=== PATIENT | male | born 1975 | race Caucasian/White ===

== ENCOUNTER 2023-06-12 07:59 | Inpatient (IN) | payer MEDICAID ==
[~2023-06-12] VITALS: Ht 182.9 cm; Wt 77.1 kg
[2023-06-12 08:02] VITALS: BP 162/64; PULSE 72; RESP 20; TEMP 97.9; O2SAT 100
[2023-06-12 08:51] LABS: BASOPHILS % (AUTO) 0.4 % (0.0-2.0); EOSINOPHILS % (AUTO) 0.4 % (0.0-4.0); HEMATOCRIT 42.5 % (36-52); HEMOGLOBIN 15.1 g/dL (12.0-18.0); LYMPHOCYTES # (AUTO) 1.3 K/uL (2.0-11.5); LYMPHOCYTES % (AUTO) 14.4 % (20.5-51.1); MEAN CORPUSCULAR HEMOGLOBIN 32 pg (27-31); MEAN CORPUSCULAR HGB CONC 35 g/dL (33-37); MEAN CORPUSCULAR VOLUME 91.4 fL (80-94); MONOCYTES # (AUTO) 0.5 K/uL (0.8-1.0); MONOCYTES % (AUTO) 5.6 % (1.7-9.3); NEUTROPHILS # (AUTO) 7.4 K/uL (1.8-7.7); NEUTROPHILS % (AUTO) 79.2 % (42.2-75.2); PLATELET COUNT (AUTO) 229 K/uL (140-450); RED BLOOD CELL COUNT(AUTO) 4.65 MIL/uL (4.20-6.10); WHITE BLOOD COUNT (AUTO) 9.3 K/uL (4.8-10.8)
[2023-06-12] MEDS: KETOROLAC 30 MG/ML VIAL IVP ONE (09:05)
[2023-06-12 09:09] LABS: ANION GAP 13.5 (8-16); CALCIUM 9.5 mg/dL (8.5-10.1); CARBON DIOXIDE 25.8 mmol/L (21-32); CREATININE 0.9 mg/dL (0.6-1.3); POTASSIUM 3.3 mmol/L (3.5-5.1)
[2023-06-12 09:30] LABS: BILIRUBIN,DIRECT 0.3 mg/dL (0.0-0.3); TOTAL BILIRUBIN 2.2 mg/dL (0.0-1.0)
[2023-06-12] MEDS: MORPHINE SULFATE 4 MG/ML SYR IVP ONE (10:02)
[2023-06-12] MEDS ORDERED: KETAMINE 500 MG/5 ML VIAL ONE (10:58)
[2023-06-12] MEDS: KETAMINE 500 MG/5 ML VIAL IVP ONE (11:05)
[2023-06-12] MEDS: fentaNYL citrate 0.05 MG/ML VIAL IVP ONE (11:48)
[2023-06-12] MEDS ORDERED: MAG SULF 2000 MG/WATER PREMIX 50 ML IV PRN (12:30)
[2023-06-12] MEDS ORDERED: POLYETHYLENE GLYCOL 17 GM/PKT PO PRN (12:30)
[2023-06-12] MEDS: NACL 0.9% 1,000 ML IV SCH (12:30)
[2023-06-12] MEDS: MORPHINE SULFATE 2 MG/ML SYR IVP PRN (14:49)
[2023-06-12] MEDS ORDERED: BENZ1GEL49 TP (15:10)
[2023-06-12] MEDS ORDERED: DICL100G32 TP (15:10)
[2023-06-12 15:30] VITALS: RESP 19; RESP 20; O2SAT 100; O2SAT 98
[2023-06-12] MEDS: HYDROcodone/APAP 5/325 MG 1 TAB TAB PO PRN (16:26)
[2023-06-12 17:15] VITALS: BP 149/79; PULSE 58; RESP 19; TEMP 97.1; O2SAT 98
[2023-06-12] MEDS: KCL 20 MEQ IN 100 mL PREMIX 200 ML IV PRN (17:40)
[2023-06-12 20:00] VITALS: BP 146/102; PULSE 50; RESP 20; TEMP 97.9; O2SAT 98
[2023-06-12] MEDS: MELATONIN 3 MG TAB PO PRN (21:27)
[2023-06-12] MEDS: ONDANSETRON 4 MG/2 ML VIAL IVP PRN (23:02)
[2023-06-13 03:18] LABS: BILIRUBIN,URINE 1+ (NEGATIVE); BLOOD, URINE 1+ (NEGATIVE); LEUKOCYTE ESTERASE ,URINE NEGATIVE (NEGATIVE); NITRITE, URINE NEGATIVE (NEGATIVE); PH,URINE 5.5 (5.0-9.0); PROTEIN,URINE NEGATIVE (NEGATIVE); UGLUCOSE NEGATIVE (NEGATIVE); UROBILINOGEN,URINE 0.2 EU/dL (0.2 - 1)
[2023-06-13 03:21] LABS: APPEARANCE,URINE CLEAR (CLEAR); COLOR,URINE AMBER (YELLOW)
[2023-06-13 03:22] LABS: ICTOTEST POSITIVE (NEGATIVE)
[2023-06-13 03:23] LABS: WBC,URINE 0-5 /HPF (0-5)
[2023-06-13 03:24] LABS: BACTERIA,URINE >30 (MANY) /HPF (None Seen); MUCUS,URINE 1+ /LPF (None Seen); SQUAMOUS EPITHELIAL CELL,UR 0-3 (FEW) /LPF (0-3 (FEW))
[2023-06-13 04:00] VITALS: BP 130/78; PULSE 58; TEMP 97.7; O2SAT 95
[2023-06-13 06:24] LABS: BASOPHILS % (AUTO) 0.4 % (0.0-2.0); EOSINOPHILS % (AUTO) 0.2 % (0.0-4.0); HEMOGLOBIN 13.5 g/dL (12.0-18.0); LYMPHOCYTES # (AUTO) 1.5 K/uL (2.0-11.5); LYMPHOCYTES % (AUTO) 14.9 % (20.5-51.1); MEAN CORPUSCULAR HEMOGLOBIN 32 pg (27-31); MEAN CORPUSCULAR HGB CONC 36 g/dL (33-37); MEAN CORPUSCULAR VOLUME 90.9 fL (80-94); MONOCYTES # (AUTO) 0.9 K/uL (0.8-1.0); NEUTROPHILS # (AUTO) 7.6 K/uL (1.8-7.7); NEUTROPHILS % (AUTO) 75.5 % (42.2-75.2); PLATELET COUNT (AUTO) 192 K/uL (140-450); RED BLOOD CELL COUNT(AUTO) 4.18 MIL/uL (4.20-6.10); RED CELL DISTRIBUTION WIDTH 12.9 % (11.6-13.7); WHITE BLOOD COUNT (AUTO) 10.1 K/uL (4.8-10.8)
[2023-06-13 06:57] LABS: ANION GAP 13.1 (8-16); CALCIUM 8.2 mg/dL (8.5-10.1); CARBON DIOXIDE 22.4 mmol/L (21-32); CREATININE 0.7 mg/dL (0.6-1.3); MAGNESIUM 1.8 mg/dL (1.8-2.4); PHOSPHORUS 4.3 mg/dL (2.5-4.9); POTASSIUM 3.5 mmol/L (3.5-5.1); TOTAL PROTEIN, SERUM 5.8 g/dL (6.4-8.2)
[2023-06-13 08:00] VITALS: BP 126/77; PULSE 62; RESP 20; TEMP 97.8; O2SAT 97
[2023-06-13 16:00] VITALS: BP 106/64; PULSE 54; RESP 20; TEMP 97.4; O2SAT 99
[2023-06-13 20:00] VITALS: BP 129/63; PULSE 60; RESP 18; TEMP 98.5; O2SAT 98
[2023-06-13] MEDS: ACETAMINOPHEN 325 MG TAB PO PRN (20:40)
[2023-06-14 05:32] LABS: BASOPHILS % (AUTO) 0.7 % (0.0-2.0); EOSINOPHILS # (AUTO) 0.1 K/uL (0-0.4); EOSINOPHILS % (AUTO) 1.7 % (0.0-4.0); HEMATOCRIT 33.4 % (36-52); LYMPHOCYTES # (AUTO) 1.9 K/uL (2.0-11.5); LYMPHOCYTES % (AUTO) 33.2 % (20.5-51.1); MEAN CORPUSCULAR HEMOGLOBIN 33 pg (27-31); MEAN CORPUSCULAR HGB CONC 36 g/dL (33-37); MEAN CORPUSCULAR VOLUME 90.7 fL (80-94); MONOCYTES # (AUTO) 0.6 K/uL (0.8-1.0); MONOCYTES % (AUTO) 10.5 % (1.7-9.3); NEUTROPHILS # (AUTO) 3.1 K/uL (1.8-7.7); NEUTROPHILS % (AUTO) 53.9 % (42.2-75.2); PLATELET COUNT (AUTO) 155 K/uL (140-450); RED BLOOD CELL COUNT(AUTO) 3.68 MIL/uL (4.20-6.10); RED CELL DISTRIBUTION WIDTH 12.9 % (11.6-13.7); WHITE BLOOD COUNT (AUTO) 5.8 K/uL (4.8-10.8)
[2023-06-14 06:17] LABS: ALBUMIN 2.5 g/dL (3.4-5.0); ANION GAP 8.6 (8-16); CALCIUM 7.8 mg/dL (8.5-10.1); CARBON DIOXIDE 27.9 mmol/L (21-32); CREATININE 0.7 mg/dL (0.6-1.3); MAGNESIUM 1.8 mg/dL (1.8-2.4); PHOSPHORUS 2.7 mg/dL (2.5-4.9); POTASSIUM 3.5 mmol/L (3.5-5.1); TOTAL BILIRUBIN 1.8 mg/dL (0.0-1.0); TOTAL PROTEIN, SERUM 4.8 g/dL (6.4-8.2)
[2023-06-14 08:00] VITALS: BP 111/63; PULSE 49; RESP 17; TEMP 98.4; O2SAT 100
[2023-06-14 10:35] VITALS: PULSE 63
[2023-06-14] MEDS: ASPIRIN 325 MG TAB PO SCH (10:56)
[2023-06-14 12:00] VITALS: BP 123/81; PULSE 47; PULSE 56; RESP 19; TEMP 98.5; O2SAT 98
[2023-06-14] MEDS ORDERED: HEPARIN PER PHARMACY MC PRN (13:10)
[2023-06-14] MEDS: ATORVASTATIN 20 MG TAB PO SCH (13:28)
[2023-06-14] MEDS ORDERED: hePARIN / DEXT 5% PREMIX 250 ML IV SCH (14:00)
[2023-06-14 16:00] VITALS: BP 140/79; PULSE 50; PULSE 55; RESP 17; TEMP 98.4; O2SAT 97
[2023-06-14] MEDS ORDERED: LOVENOX 1MG/KG Q12H SUBQ SCH (16:40)
[2023-06-14 20:00] VITALS: BP 126/69; PULSE 61; PULSE 73; RESP 18; TEMP 97.4; O2SAT 98
[2023-06-14] MEDS: ENOXAPARIN 80 MG/0.8 ML SYR SUBQ SCH (20:34)
[2023-06-15] VITALS (7 sets, daily range): BP systolic 114–150; BP diastolic 65–84; PULSE 45–61; RESP 17–18; TEMP 96.8–98.5; O2SAT 96–100
[2023-06-15 08:42] LABS: BASOPHILS % (AUTO) 0.5 % (0.0-2.0); EOSINOPHILS # (AUTO) 0.1 K/uL (0-0.4); HEMATOCRIT 34.2 % (36-52); HEMOGLOBIN 12.2 g/dL (12.0-18.0); LYMPHOCYTES # (AUTO) 1.7 K/uL (2.0-11.5); LYMPHOCYTES % (AUTO) 21.4 % (20.5-51.1); MEAN CORPUSCULAR HEMOGLOBIN 32 pg (27-31); MEAN CORPUSCULAR HGB CONC 36 g/dL (33-37); MEAN CORPUSCULAR VOLUME 90.4 fL (80-94); MONOCYTES # (AUTO) 0.8 K/uL (0.8-1.0); MONOCYTES % (AUTO) 10.4 % (1.7-9.3); NEUTROPHILS # (AUTO) 5.3 K/uL (1.8-7.7); NEUTROPHILS % (AUTO) 66.7 % (42.2-75.2); PLATELET COUNT (AUTO) 164 K/uL (140-450); RED BLOOD CELL COUNT(AUTO) 3.78 MIL/uL (4.20-6.10); RED CELL DISTRIBUTION WIDTH 12.8 % (11.6-13.7); WHITE BLOOD COUNT (AUTO) 7.9 K/uL (4.8-10.8)
[2023-06-15] MEDS: ECOTRIN 81 MG TABEC PO SCH (09:00)
[2023-06-15 09:22] LABS: ALBUMIN 2.6 g/dL (3.4-5.0); ANION GAP 9.4 (8-16); CARBON DIOXIDE 29.4 mmol/L (21-32); CREATININE 0.8 mg/dL (0.6-1.3); MAGNESIUM 1.7 mg/dL (1.8-2.4); PHOSPHORUS 2.9 mg/dL (2.5-4.9); POTASSIUM 3.8 mmol/L (3.5-5.1); TOTAL BILIRUBIN 1.2 mg/dL (0.0-1.0); TOTAL PROTEIN, SERUM 5.3 g/dL (6.4-8.2)
[2023-06-15] MEDS: REGADENOSON 0.4 MG/5 ML SYR IV SCH (10:00)
[2023-06-16] VITALS: BP 138/68; PULSE 53; PULSE 58; RESP 18; TEMP 98.5; O2SAT 97
[2023-06-16 04:00] VITALS: BP 126/74; PULSE 47; PULSE 50; RESP 18; TEMP 97.8; O2SAT 98
[2023-06-16 06:21] LABS: BASOPHILS % (AUTO) 0.4 % (0.0-2.0); EOSINOPHILS # (AUTO) 0.1 K/uL (0-0.4); EOSINOPHILS % (AUTO) 1.6 % (0.0-4.0); HEMATOCRIT 34.7 % (36-52); HEMOGLOBIN 12.4 g/dL (12.0-18.0); LYMPHOCYTES # (AUTO) 1.6 K/uL (2.0-11.5); LYMPHOCYTES % (AUTO) 21.3 % (20.5-51.1); MEAN CORPUSCULAR HEMOGLOBIN 32 pg (27-31); MEAN CORPUSCULAR HGB CONC 36 g/dL (33-37); MEAN CORPUSCULAR VOLUME 90.4 fL (80-94); MONOCYTES # (AUTO) 0.8 K/uL (0.8-1.0); MONOCYTES % (AUTO) 9.8 % (1.7-9.3); NEUTROPHILS # (AUTO) 5.1 K/uL (1.8-7.7); NEUTROPHILS % (AUTO) 66.9 % (42.2-75.2); PLATELET COUNT (AUTO) 178 K/uL (140-450); RED BLOOD CELL COUNT(AUTO) 3.84 MIL/uL (4.20-6.10); RED CELL DISTRIBUTION WIDTH 12.9 % (11.6-13.7); WHITE BLOOD COUNT (AUTO) 7.7 K/uL (4.8-10.8)
[2023-06-16 06:35] LABS: ALBUMIN 2.8 g/dL (3.4-5.0); ANION GAP 9.7 (8-16); CALCIUM 8.3 mg/dL (8.5-10.1); CARBON DIOXIDE 29.9 mmol/L (21-32); CREATININE 0.7 mg/dL (0.6-1.3); MAGNESIUM 1.7 mg/dL (1.8-2.4); PHOSPHORUS 3.4 mg/dL (2.5-4.9); POTASSIUM 3.6 mmol/L (3.5-5.1); TOTAL BILIRUBIN 1.3 mg/dL (0.0-1.0); TOTAL PROTEIN, SERUM 5.7 g/dL (6.4-8.2)
[2023-06-16 07:57] VITALS: BP 124/71; PULSE 51; RESP 18; TEMP 97.8; O2SAT 97
[2023-06-16 11:29] VITALS: BP 143/85; PULSE 52; RESP 18; TEMP 97.8; O2SAT 97
[2023-06-16] MEDS: REGADENOSON 0.4 MG/5 ML SYR IV SCH (11:30)
[2023-06-16 12:00] VITALS: PULSE 56
[2023-06-17] MEDS ORDERED: POLYETHYLENE GLYCOL 17 GM/PKT PO SCH (09:00)
== END 2023-06-16 13:14 | disposition left against medical advice (07) | DRG 247 ==
LOC: MED 07:59 → MMU 11:38 → MTU 06-14 13:51 → MMU 06-15 08:26
PROVIDERS: ADMIT Family Medicine; ATTEND Family Medicine
PROC: 0D9670Z Drainage of Stomach with Drainage Device, Via Natural or Artificial Opening (ICD-10-PCS; principal; 2023-06-12)
DX: K56.600 Partial intestinal obstruction, unspecified as to cause (principal); I21.4 Non-ST elevation (NSTEMI) myocardial infarction; L40.9 Psoriasis, unspecified; R00.1 Bradycardia, unspecified; Z53.29 Procedure and treatment not carried out because of patient's decision for other reasons; E87.6 Hypokalemia; Z90.49 Acquired absence of other specified parts of digestive tract
CPT/HCPCS: 36415; 74018; 74250; 80048; 80053; 80076; 81001; 83690; 83735; 84100; 84484; 85025; 85730; 87081; 93005; 93017; 96374; 96375; 99291; A9500; A9502; J1644; J1650; J1885; J2270; J2405; J2785; J3010; J3480; Q9967